=== PATIENT | female | born 1970 | race Caucasian/White ===

== ENCOUNTER 2019-03-12 13:00 | Emergency (ER) | payer BC, OTHER ==
[2019-03-12 13:05] VITALS: BP 124/86; PULSE 74; RESP 18; TEMP 98.1
[2019-03-12] MEDS ORDERED: cefTRIAXone 1,000 MG VIAL (IM USE) IM STA (13:15)
[2019-03-12] MEDS ORDERED: DIPH,PERTUS(ACELL)TETVAC-LF 0.5 ML VIAL IM ONE (13:15)
--- NOTE | 2019-03-12 13:42 | XR ---
EXAMINATION TYPE: XR hand complete LT DATE OF EXAM: 03/12/2019 COMPARISON: None HISTORY: Puncture wound between first and second digit TECHNIQUE: Three-view left hand. FINDINGS: Patient ring is on during the examination. Soft tissue injury between the thumb and index f myrna is evident. No radiopaque foreign bodies are evident. Osseous structures are intact. Joint spaces are preserved. IMPRESSION: 1. No radiopaque foreign bodies at the soft tissue injury between the thumb and index finger. 2. No acute osseous abnormality.
[2019-03-12] MEDS ORDERED: ACETAMINOPHEN TAB 500 MG TAB PO STA (15:03)
--- NOTE | 2019-03-12 15:21 | ED ---
General Adult HPI - General Chief complaint: Wound/Laceration Stated complaint: left hand lac Time Seen by Provider: 03/12/19 13:07 Source: patient, RN notes reviewed, old records reviewed Mode of arrival: ambulatory Limitations: no limitations - History of Present Illness Initial comments: 48-year-old female patient presents ED chief complaint of puncture to left into webbing between thumb and first digit. Patient reports that she is using a knife to open a piece of plastic when slipped. Patient does not know date of last tetanus. Patient denies any other complaints or injury. Systemic: Pt denies fatigue, fever/chills, rash. Pt denies weakness, night sweats, weight loss. Neuro: Pt denies headache, visual disturbances, syncope or pre-syncope. HEENT: Pt denies ocular discharge or irritation, otalgia, rhinorrhea, pharyngitis or notable lymphadenopathy. Cardiopulmonary: Pt denies chest pain, SOB, heart palpitations, dyspnea on exertion. Abdominal/GI: Pt denies abdominal pain, n/v/d. : Pt denies dysuria, burning w/ urination, frequency/urgency. Denies new onset urinary or bowel incontinence. MSK: Pt denies myalgia, loss of strength or function in extremities. Neuro: Pt denies new onset weakness, paresthesias. - Related Data Home Medications Medication Instructions Recorded Confirmed ARIPiprazole [Abilify] 5 mg PO DAILY 03/12/19 03/12/19 Citalopram Hydrobromide [CeleXA] 30 mg PO HS 03/12/19 03/12/19 Clorazepate Dipotassium 15 mg PO BID PRN 03/12/19 03/12/19 Cyclobenzaprine [Flexeril] 10 mg PO TID PRN 03/12/19 03/12/19 Dextroamphetamine/Amphetamine 20 mg PO DAILY 03/12/19 03/12/19 [Adderall Xr] Dicyclomine [Bentyl] 20 mg PO QID PRN 03/12/19 03/12/19 Levothyroxine Sodium [Synthroid] 125 mcg PO DAILY 03/12/19 03/12/19 Pantoprazole Sodium [Protonix] 40 mg PO BID 03/12/19 03/12/19 Topiramate [Topamax] 100 mg PO BID 03/12/19 03/12/19 buPROPion HCL [Wellbutrin XL] 300 mg PO BID 03/12/19 03/12/19 lamoTRIgine [LaMICtal] 200 mg PO HS 03/12/19 03/12/19 Previous Rx's Medication Instructions Recorded Cephalexin [Keflex] 500 mg PO Q6HR 7 Days #28 cap 03/12/19 Allergies Allergy/AdvReac Type Severity Reaction Status Date / Time Penicillins Allergy Rash/Hives Verified 03/12/19 14:09 Sulfa (Sulfonamide Allergy Dyspnea Verified 03/12/19 14:09 Antibiotics) gluten AdvReac Nausea & Verified 03/12/19 14:09 Vomiting & Diarrhea Milk Containing Products AdvReac Nausea & Verified 03/12/19 14:09 [Dairy] Vomiting & Diarrhea soy AdvReac Nausea & Verified 03/12/19 14:09 Vomiting & Diarrhea Review of Systems ROS Statement: Those systems with pertinent positive or pertinent negative responses have been documented in the HPI. ROS Other: All systems not noted in ROS Statement are negative. Past Medical History Past Medical History: Asthma, GERD/Reflux Additional Past Medical History / Comment(s): chronic back pain, hiatal hernia History of Any Multi-Drug Resistant Organisms: None Reported Past Surgical History: Back Surgery Past Psychological History: Anxiety, Depression Smoking Status: Current every day smoker Past Alcohol Use History: None Reported Past Drug Use History: None Reported General Exam - General Exam Comments Initial Comments: Constitutional: NAD, AOX3, Pt has pleasant affect. HEENT: NC/AT, trachea midline, neck supple, no lymphadenopathy. Posterior pharynx non erythematous, without exudates. External ears appear normal, without discharge. Mucous membranes moist. Eyes PERRLA, EOM intact. There is no scleral icterus. No pallor noted. Cardiopulmonary: RRR, no murmurs, rubs or gallops, no JVD noted. Lungs CTAB in anterior and posterior camarena. No peripheral edema. Abdominal exam: Abdomen soft and non-distended. Abdomen non-tender to palpation in all 4 quadrants. Bowel sounds active in LLQ. No hepatosplenomegaly. No ecchymosis Neuro: CN II-XII grossly intact. No nuchal rigidity. No raccon eyes, no chung sign, no hemotympanum. No cervical spinal tenderness. MSK: 1 cm laceration to into webbing between thumb and first digit of left hand. Self approximating. Wound cleaned and ED. Approximated with one Steri-Strip. Full active range of motion of thumb, all digits, capillary refill less than 2 seconds. Sensation intact. No posterior calf tenderness bilaterally, homans sign negative bilaterally. Posterior tibialis and radial pulse +2 bilaterally. Sensation intact in upper and lower extremities. Full active ROM in upper and lower extremities, 5/5 stregnth. Limitations: no limitations Course Vital Signs 03/12/19 13:02 Temperature 98.1 F Pulse Rate 74 Respiratory 18 Rate Blood Pressure 124/86 O2 Sat by Pulse 99 Oximetry Procedures - Laceration Laceration #1 Consent Obtained: verbal consent Indication: laceration Site: other (hand) Size (cm): 1 Description: linear Depth: simple, single layer Pre-repair: wound explored, irrigated extensively Type of Sutures: other (approximated with 1 steristrip, wound is self approximating ) Patient Tolerated Procedure: well, no complications Medical Decision Making - Medical Decision Making 48-year-old female patient presents ED chief complaint of puncture to left into webbing between thumb and first digit. Patient reports that she is using a knife to open a piece of plastic when slipped. Patient does not know date of last tetanus. Patient denies any other complaints or injury. Pt VSS, afebrile. Physical exam displayed: 1 cm laceration to into webbing between thumb and first digit of left hand. Self approximating. Wound cleaned and ED. Approximated with one Steri-Strip. Pt declined suture. Full active range of motion of thumb, all digits, capillary refill less than 2 seconds. Sensation intact. Patient placed in thumb spica splint, neurovascularly intact after splint placement. Patient discharged with outpatient orthopedic follow-up to rule out any tendon injury. Patient administered 1 g Rocephin ED discharged with Keflex, return precautions discussed. Tetanus updated. Case discussed with Dr. Torres. Disposition Clinical Impression: Laceration Disposition: HOME SELF-CARE Condition: Stable Instructions (If sedation given, give patient instructions): Laceration (ED) Additional Instructions: Patient to adhere to previously discussed treatment plan and will take medication(s) as directed. Patient to follow up with PCP in 1-2 days. Patient to return to ED if symptoms do not improve. Please monitor for signs and symptoms of infection including: redness, warmth, drainage, discharge. Please return to ED if these signs or symptoms occur, new signs or symptoms develop or if condition worsens in anyway. Follow-up with hand surgeon tomorrow. Prescriptions: Cephalexin [Keflex] 500 mg PO Q6HR 7 Days #28 cap Is patient prescribed a controlled substance at d/c from ED?: No Referrals: Lul Pal DO [Primary Care Provider] - 1-2 days Wesley Corbin DO [Medical Doctor] - 1-2 days
== END 2019-03-12 15:38 | disposition home or self-care (01) ==
LOC: EC 13:00
DX: S61.412A Laceration without foreign body of left hand, initial encounter (principal); K21.9 Gastro-esophageal reflux disease without esophagitis; F41.9 Anxiety disorder, unspecified; F32.9 Major depressive disorder, single episode, unspecified; F17.200 Nicotine dependence, unspecified, uncomplicated; Z79.890 Hormone replacement therapy; Z79.899 Other long term (current) drug therapy; Z88.0 Allergy status to penicillin; Z88.2 Allergy status to sulfonamides; Z91.018 Allergy to other foods; Z91.011 Allergy to milk products; Z53.29 Procedure and treatment not carried out because of patient's decision for other reasons; Z23 Encounter for immunization; W26.0XXA Contact with knife, initial encounter; Y93.89 Activity, other specified; Y92.009 Unspecified place in unspecified non-institutional (private) residence as the place of occurrence of the external cause
CPT/HCPCS: 73130; 90715; 99283; 96372; 90471; J0696

== ENCOUNTER 2021-02-20 03:31 | Emergency (ER) | payer BC ==
[2021-02-20 04:26] VITALS: BP 143/93; PULSE 62; RESP 19; TEMP 97.7
[2021-02-20] MEDS ORDERED: LIDOCAINE/EPINEPHR/TETRACAINE 5 ML BOTTLE TOPICAL ONE (05:00)
[2021-02-20] MEDS ORDERED: FAMOTIDINE 20 MG TAB PO STA (05:00)
--- NOTE | 2021-02-20 05:39 | ED ---
Skin/Abscess/FB HPI - General Chief complaint: Skin/Abscess/Foreign Body Stated complaint: Piercing Issues Time Seen by Provider: 02/20/21 05:03 Source: patient Mode of arrival: ambulatory - History of Present Illness Initial comments: This patient is a 50-year-old woman who presents to have reevaluation of her right ear. She states that she had a piercing placed there. She has noticed that it has become increasingly swollen, red, and warm. She also was able to express some pus from the piercing site. She did try using ice and also hot topical and it an 10 infected. She has not had systemic symptoms, no fever or chills, palpitations, chest pain, dyspnea. No headache. No change in hearing. MD complaint: other -: days(s) Tetanus Up to Date: yes Severity: severe Quality: aching Consistency: constant Improves with: none Worsens with: none Context: other (Or syncope) - Related Data Home Medications Medication Instructions Recorded Confirmed ARIPiprazole [Abilify] 5 mg PO DAILY 03/12/19 03/12/19 Citalopram Hydrobromide [CeleXA] 30 mg PO HS 03/12/19 03/12/19 Clorazepate Dipotassium 15 mg PO BID PRN 03/12/19 03/12/19 Cyclobenzaprine [Flexeril] 10 mg PO TID PRN 03/12/19 03/12/19 Dextroamphetamine/Amphetamine 20 mg PO DAILY 03/12/19 03/12/19 [Adderall Xr] Dicyclomine [Bentyl] 20 mg PO QID PRN 03/12/19 03/12/19 Levothyroxine Sodium [Synthroid] 125 mcg PO DAILY 03/12/19 03/12/19 Pantoprazole Sodium [Protonix] 40 mg PO BID 03/12/19 03/12/19 Topiramate [Topamax] 100 mg PO BID 03/12/19 03/12/19 buPROPion HCL [Wellbutrin XL] 300 mg PO BID 03/12/19 03/12/19 lamoTRIgine [LaMICtal] 200 mg PO HS 03/12/19 03/12/19 Previous Rx's Medication Instructions Recorded Cephalexin [Keflex] 500 mg PO Q6HR 7 Days #28 cap 03/12/19 Ciprofloxacin HCl [Cipro] 500 mg PO Q12HR #14 tablet 02/20/21 Allergies Allergy/AdvReac Type Severity Reaction Status Date / Time NSAIDS (Non-Steroidal Allergy Dyspnea Verified 02/20/21 04:20 Anti-Inflamma Penicillins Allergy Rash/Hives Verified 03/12/19 14:09 Sulfa (Sulfonamide Allergy Dyspnea Verified 03/12/19 14:09 Antibiotics) gluten AdvReac Nausea & Verified 03/12/19 14:09 Vomiting & Diarrhea Milk Containing Products AdvReac Nausea & Verified 03/12/19 14:09 [Dairy] Vomiting & Diarrhea soy AdvReac Nausea & Verified 03/12/19 14:09 Vomiting & Diarrhea Review of Systems ROS Statement: Those systems with pertinent positive or pertinent negative responses have been documented in the HPI. ROS Other: All systems not noted in ROS Statement are negative. Constitutional: Denies: fever, chills Eyes: Denies: eye pain ENT: Reports: as per HPI, ear pain Respiratory: Denies: dyspnea Cardiovascular: Denies: chest pain, palpitations Skin: Denies: rash, lesions Neurological: Denies: headache Past Medical History Past Medical History: Asthma, GERD/Reflux Additional Past Medical History / Comment(s): chronic back pain, hiatal hernia History of Any Multi-Drug Resistant Organisms: None Reported Past Surgical History: Back Surgery Past Psychological History: Anxiety, Depression Smoking Status: Current every day smoker, Vaper Past Alcohol Use History: None Reported Past Drug Use History: Marijuana General Exam General appearance: alert, in no apparent distress Head exam: Present: atraumatic, normocephalic Eye exam: Present: normal appearance. Absent: scleral icterus, conjunctival injection ENT exam: Present: normal oropharynx, TM's normal bilaterally, other (Erythema, warmth, swelling right ear at the piercing sites.). Absent: normal external ear exam Neck exam: Present: normal inspection, full ROM. Absent: meningismus, lymphadenopathy Neurological exam: Present: alert Skin exam: Present: warm, dry, intact, normal color, erythema. Absent: rash Course Vital Signs 02/20/21 04:20 Temperature 97.7 F Pulse Rate 62 Respiratory 19 Rate Blood Pressure 143/93 O2 Sat by Pulse 100 Oximetry Disposition Clinical Impression: Perichondritis Disposition: HOME SELF-CARE Condition: Good Instructions (If sedation given, give patient instructions): Pierced [place] Infection (ED) Prescriptions: Ciprofloxacin HCl [Cipro] 500 mg PO Q12HR #14 tablet Is patient prescribed a controlled substance at d/c from ED?: No Referrals: Nonstaff,Physician [Primary Care Provider] - 1-2 days
== END 2021-02-20 06:02 | disposition home or self-care (01) ==
LOC: EC 03:31
DX: H61.001 Unspecified perichondritis of right external ear (principal); F17.290 Nicotine dependence, other tobacco product, uncomplicated; J45.909 Unspecified asthma, uncomplicated; K21.9 Gastro-esophageal reflux disease without esophagitis; Z88.0 Allergy status to penicillin; Z88.2 Allergy status to sulfonamides; Z88.6 Allergy status to analgesic agent; Z91.018 Allergy to other foods; Z91.011 Allergy to milk products; Z79.899 Other long term (current) drug therapy
CPT/HCPCS: 99282